=== PATIENT | male | born 1980 | race Two or more races ===

== ENCOUNTER 2019-04-14 19:06 | Emergency (ER) | payer MEDICAID ==
--- NOTE | 2019-04-14 19:39 | ED Physician Chart ---
ED Chief Complaint/HPI - Patient Information Date Seen:: 04/14/19 Time Seen:: 19:30 Chief Complaint:: pain base of the left large toe History of Present Illness:: Patient had onset 3 days ago of pain at the bases left large toe. No trauma. About 10 years ago patient had similar episode of pain at the bases left large toe which lasted about 3 days diagnosed as gout. Allergies:: Allergies Allergy/AdvReac Type Severity Reaction Status Date / Time amoxicillin Allergy Severe Verified 04/14/19 19:36 Vitals:: Vital Signs - 8 hr 04/14/19 19:10 Temp 98.7 F HR 58 RR 18 BP 158/101 O2 Sat % 98 Historian:: Patient Review:: Nurse's Note Reviewed ED Review of Systems - Review of Systems General/Constitutional: No fever, No chills Skin: No skin lesions Head: No headache Eyes: No loss of vision ENT: No earache Neck: No neck pain Cardio Vascular: No chest pain Pulmonary: No SOB GI: No nausea, No vomiting, No diarrhea G/U: No dysuria Musculoskeletal: Bone or joint pain Endocrine: No polyuria, No polydipsia Psychiatric: No prior psych history Hematopoietic: No bruising Allergic/Immuno: No urticaria Neurological: No syncope, No focal symptoms ED Past Medical History - Past Medical History Past Medical History: No significant medical hx Family History: Other (mother has hyperlipidemia and hypertension) Social History: Non Smoker, No Alcohol Surgical History: other (meniscus right knee; mandible for fracture) Psychiatricy History: None Medication: Reviewed Family Medical History - Family Member Mother History Unknown: Yes ED Physical Exam - Physical Examination General/Constitutional: Awake, Well-developed, well-nourished, Alert, No distress, GCS 15, Non-toxic appearing, Ambulatory Head: Atraumatic Eyes: Lids, conjuctiva normal, PERRL, EOMI Skin: Nl inspection, No rash, No skin lesions, No ecchymosis, Well hydrated, No lymphadenopathy ENMT: External ears, nose nl, Nasal exam nl, Lips, teeth, gums nl Neck: Nontender, Full ROM w/o pain, No JVD, No nuchal rigidity, No bruit, No mass, No stridor Respiratory: Nl effort/Exclusion, Clear to Auscultation, No Wheeze/Rhonchi/Rales Cardio Vascular: RRR, No murmur, gallop, rubs, NL S1 S2 GI: No tenderness/rebounding/guarding, No organomegaly, No hernia, Normal BS's, Nondistended, No mass/bruits, No McBurney tenderness : No CVA tenderness Other Extremities comments:: Tenderness base of left large toe Neuro/Psych: Alert/oriented, DTR's symmetric, Normal sensory exam, Normal motor strength, Judgement/insight normal, Mood normal, Normal gait, No focal deficits Misc: Normal back, No paraspinal tenderness ED Assessment - Assessment General Assessment: the classic location for gout is at the base of the large toe which the patient has. Patient encouraged to get generic ibuprofen and take four 3-4 times a day. Patient given a note that he should stay off his feet for 4 days as his work entails being on his feet all the time. ED Septic Shock - . Is Septic Shock (SBP<90, OR Lactate>4 mmol\L) present?: No - <6hrs of presentation: Vital Signs: Vital Signs - 8 hr 04/14/19 19:10 Temp 98.7 F HR 58 RR 18 BP 158/101 O2 Sat % 98 ED Reassessment (Disposition) - Reassessment Reassessment Condition:: Unchanged - Diagnosis Diagnosis:: gout base of left large toe - Aftercare/Follow up Instructions Aftercare/Follow-Up Instructions:: Refer to Discharge Instructions - Patient Disposition Discharge/Transfer:: Home Condition at Disposition:: Stable, Unchanged
== END 2019-04-14 20:00 | disposition home or self-care (01) ==
LOC: ER 19:06
DX: M10.9 Gout, unspecified (principal); M25.572 Pain in left ankle and joints of left foot; Z88.1 Allergy status to other antibiotic agents
CPT/HCPCS: 99283; 96372; J1885; Z7502